=== PATIENT | female | born 1980 | race Caucasian/White ===

== ENCOUNTER 2017-10-20 14:36 | Emergency (ER) | payer OTHER ==
[2017-10-20 15:10] LABS: Bilirubin Negative (Negative); Blood, Urine Negative (Negative); Clarity Clear (Clear); Glucose, Urine (Dipstick) Negative (Negative); Leukocyte Negative (Negative); Nitrite Negative (Negative); Protein, Urine (Dipstick) Negative (Neg-Trace); Specific Gravity, Urine 1.025 (1.005-1.030); Urobilinogen 0.2 mg/dL (0.2-1.0); pH, Urine 6.5 (5.0-9.0)
[2017-10-20 15:14] LABS: Pregnancy Test - Urine (BHCG) Negative (Negative); Pregu Control Background? CLEAR/WHITE (CLR/WHITE); Pregu Control Bar Appear? YES (CONTROL BAR); Specific Gravity 1.025 (1.002-1.036)
--- NOTE | 2017-10-20 16:11 | CT ---
HISTORY: Abdominal pain. NONCONTRAST ENHANCED CT IMAGES ABDOMEN AND PELVIS: 10/20/17 The lung bases are unremarkable. No evidence of free intraperitoneal air is seen. The liver and splee n are unremarkable. Gallbladder and pancreas are unremarkable. Adrenal glands and kidneys are unremar kable. No dilated loops of small bowel seen. The appendix is thought to be visualized and is unremark able. The uterus demonstrates some heterogeneity but is not significantly enlarged. Both ovaries are moderately enlarged. Right ovary measures 4.2 x 2.8 cm while the left ovary measures 4.4 x 3.0 cm. IMPRESSION: Somewhat heterogeneous uterus and moderately enlarged ovaries. No significant evidence of bowel obstr uction or ileus seen. No evidence of renal calculi seen. Exam is limited due to the fact that IV and oral contrast was not given. POS: [id number]
== END 2017-10-20 16:55 | disposition home or self-care (01) ==
LOC: MADERS 14:36
DX: R10.32 Left lower quadrant pain (principal); E03.9 Hypothyroidism, unspecified; F17.210 Nicotine dependence, cigarettes, uncomplicated
CPT/HCPCS: 74176; 81003; 81025